=== PATIENT | female | born 1980 | race Caucasian/White ===

== ENCOUNTER 2016-12-05 17:50 | Outpatient (CLI) | payer OTHER ==
[~2016-12-05] VITALS: Ht 167.6 cm; Wt 95.9 kg
[~2016-12-05 17:50] MED LIST: CYCL-319 PO; HYDR-3498 PO; IBUP-1542 PO; ONDA8TAB14 PO
[2016-12-05 18:15] VITALS: Ht 167.6 cm; Wt 95.9 kg
[2016-12-05] MEDS ORDERED: METH10TA2 PO (18:27)
--- NOTE | 2016-12-05 19:04 | RADRPT ---
PROCEDURE: US OB biophysical profile. CLINICAL INDICATION: evaluation TECHNIQUE: Multiple sonographic images of the pelvis were obtained. The images were reviewed on a PACS workstation. COMPARISON: Obstetrical ultrasound from 06/19/2016 FINDINGS: There is a single viable intrauterine gestation. Cardiac activity is present with 139 beats per min rasheed. There is a vertex presentation. The placenta is fundal and left lateral in location. There is no evidence of placental abruption. There is a normal amount of amniotic fluid with an JENN = 11.4 cm. Biophysical profile: movement 2/2 tone 2/2. breathing 2/2 JENN 2/2 Total 03/10 RPTAT: AA . IMPRESSION: Normal biophysical profile. Normal JENN. Physician Nicole Date Time Electronically viewed and signed by Physician Nicole on 12/05/2016 19:04 /
[2016-12-05 19:21] LABS: ADD SCAN DIFF NO
[2016-12-05 19:23] LABS: BASOPHILS % 0.3 % (0.0-2.0); EOSINOPHILS % 0.3 % (0.0-7.0); HEMATOCRIT 34.2 % (37.0-47.0); HEMOGLOBIN 11.8 g/dl (12.0-16.0); LYMPHOCYTES # 1.8 10^3/ul (0.8-2.9); LYMPHOCYTES % 24.2 % (15.0-51.0); MEAN CORPUSCULAR HEMOGLOBIN 29.5 pg (29.0-33.0); MEAN CORPUSCULAR HGB CONC 34.5 g/dl (32.0-37.0); MEAN CORPUSCULAR VOLUME 85.5 fl (82.0-101.0); MEAN PLATELET VOLUME 10.5 fl (7.4-10.4); MONOCYTE # 0.4 10^3/ul (0.3-0.9); MONOCYTES % 4.9 % (0.0-11.0); NEUTROPHIL # 5.3 10^3/ul (1.6-7.5); NEUTROPHILS % 69.8 % (39.0-77.0); PLATELET COUNT 209 10^3/UL (140-415); RED CELL DISTRIBUTION WIDTH 13.7 % (11.5-14.5); WHITE BLOOD COUNT 7.5 10^3/ul (4.8-10.8)
[2016-12-05 19:45] LABS: POTASSIUM 3.7 mmol/L (3.5-5.1)
[2016-12-05 19:47] LABS: BILIRUBIN,INDIRECT 0.3 mg/dl (0-1.1); BILIRUBIN,TOTAL 0.3 mg/dl (0.2-1.3); CREATININE 0.52 mg/dl (0.44-1.00)
[2016-12-05 19:48] LABS: ALBUMIN/GLOBULIN RATIO 0.9; TOTAL PROTEIN 6.3 g/dl (6.1-8.1); URIC ACID 5.9 mg/dl (3.1-7.9)
[2016-12-05 19:49] LABS: CALCIUM 8.5 mg/dl (8.4-10.2)
[2016-12-05 20:13] LABS: ADD UMIC YES; URINE BILIRUBIN (Dip) NEGATIVE (NEGATIVE); URINE BLOOD (Dip) NEGATIVE (NEGATIVE); URINE COLOR LT. YELLOW (YELLOW); URINE GLUCOSE (Dip) NEGATIVE (NEGATIVE); URINE KETONES (Dip) TRACE (NEGATIVE); URINE LEUKOCYTE ESTERASE (Dip) 1+ (NEGATIVE); URINE NITRITE (Dip) NEGATIVE (NEGATIVE); URINE TOTAL PROTEIN (Dip) TRACE (NEGATIVE); URINE UROBILINOGEN (Dip) 1.0 E.U./dL (0.1-1.0)
[2016-12-05 20:33] LABS: BACTERIA,URINE MANY; MUCUS,URINE FEW; SQUAMOUS EPITHELIAL CELL,UR MODERATE; URINE RBCS 0-2 /HPF (0)
--- NOTE | 2016-12-05 20:47 | QN ---
Documentation Comment OB Triage- Laborist Pt is a 36yo at 35+6 sent from clinic for r/o Preeclampsia 2/2 BLE swelling. Pt was initially not forthcoming about a recent visit to [facility] 2w[facility] ago for elevated BPs. Apparently it was recommended that she stay for admission and observation, however pt signed out AMA. Pt reports completing a 24hr urine collection yesterday and returning it to [facility]. Pt denies CARLIN, visual change, RUQ pain, contractions, vaginal bleeding or LOF. She reports normal FM. Dr. Kelly, covering for Dr. Álvarez, ordered PreE labs and BPP. BPs 141/85, 129/77, 133/59, 125/69 FHR: baseline 120s, mod marta, +accels, no decels Noma: irregular UCs BLE: 2+ nonpitting edema, symmetric, non-tender PROCEDURE: US OB biophysical profile. CLINICAL INDICATION: evaluation TECHNIQUE: Multiple sonographic images of the pelvis were obtained. The images were reviewed on a PACS workstation. COMPARISON: Obstetrical ultrasound from 06/19/2016 FINDINGS: There is a single viable intrauterine gestation. Cardiac activity is present with 139 beats per minute. There is a vertex presentation. The placenta is fundal and left lateral in location. There is no evidence of placental abruption. There is a normal amount of amniotic fluid with an JENN = 11.4 cm. Biophysical profile: movement 2/2 tone 2/2. breathing 2/2 JENN 2/2 Total 03/10 RPTAT: AA . IMPRESSION: Normal biophysical profile. Normal JENN. Assessment and Plan Mild Range BP x1, trace protein in urine, PreE labs wnl Asymptomatic from PreE standpoint Reactive NST, nl BPP Symmetric BLE swelling Pt likely with gestational HTN based on history obtained and single elevated BP today without 1+ protein on dipstick. Given labs wnl, pt asymptomatic and recent 24hr urine collection completed with results pending, pt appropriate for d/c home without 24hr urine collection container. Recommend pt f/up with clinic on Friday 12/08 to discuss results of 24hr urine and plan for surveillance. Pt to return to OB triage for any sxs sooner. Strict PreE, PTL, PPROM and FKC precautions reviewed. Recommend pt obtain support hose for BLE swelling and to elevated BLE at night and when resting at home. Questions answered to patient's satisfaction. NIKITA VEGA MD December 05, 2016 20:46
== END 2016-12-05 20:53 | disposition home or self-care (01) ==
LOC: OBT 17:50 → L-D 17:51 → OBT 20:53
PROVIDERS: ATTEND Obstetrics & Gynecology
DX: O26.893 Other specified pregnancy related conditions, third trimester (principal); M79.89 Other specified soft tissue disorders; R03.0 Elevated blood-pressure reading, without diagnosis of hypertension; O09.523 Supervision of elderly multigravida, third trimester; Z3A.35 35 weeks gestation of pregnancy
CPT/HCPCS: 76818; 80053; 81001; 84560; 85025; Z7500; 81003; G0463